=== PATIENT | female | born 1960 | race Caucasian/White ===

== ENCOUNTER 2021-06-24 20:20 | Emergency (ER) | payer OTHER ==
[~2021-06-24] VITALS: Ht 170.2 cm; Wt 72.6 kg
--- NOTE | 2021-06-24 21:17 | NUR ---
Note narcisa in ED - 06/24/21 at 2123 by RONNI PATIENT BIBRA FROM URGENT CARE C/O CHRONIC VOMITTING. PATIENT ALERT AND ORIENTED X3. AMBULATORY WITH NON LABORED BREATHING. PLACED IN BED 12 ON PULSE OX AND MONITOR.
--- NOTE | 2021-06-24 21:23 | NUR ---
PATIENT BIBRA FROM URGENT CARE C/O GERD AND BLOOD IN HER VOMIT. PATIENT ALERT AND ORIENTED X3. AMBULATORY WITH NON LABORED BREATHING. PLACED IN BED 12 ON PULSE OX AND MONITOR.
[2021-06-24] MEDS ORDERED: IOHEXOL-300 100 ML VIAL IV ONE (22:12)
[2021-06-24] MEDS ORDERED: IV NS 0.9% 250 ML IV ONE (22:13)
--- NOTE | 2021-06-24 22:13 | NUR ---
LAB AT BEDSIDE
[2021-06-24 22:48] LABS: BASOPHILS % (AUTO) 0.2 % (0.0-2.0); EOSINOPHILS % (AUTO) 1.7 % (0.0-6.0); HEMATOCRIT 33 % (33-45); HEMOGLOBIN 10.5 g/dL (11.5-14.8); LYMPHOCYTES # (AUTO) 8.3 K/uL (0.8-4.8); LYMPHOCYTES % (AUTO) 52.8 % (20.0-44.0); MEAN CORPUSCULAR HGB CONC 32 g/dl (31.0-36.0); MEAN CORPUSCULAR VOLUME 80 fL (82-100); MONOCYTES # (AUTO) 1.3 K/uL (0.1-1.30); NEUTROPHILS # (AUTO) 5.9 K/uL (1.8-8.9); NEUTROPHILS % (AUTO) 37.3 % (43.0-81.0); PLATELET COUNT (AUTO) 350 K/uL (150-450); WHITE BLOOD COUNT (AUTO) 15.8 K/uL (4.3-11.0)
[2021-06-24 23:01] LABS: BILIRUBIN,URINE NEGATIVE (NEGATIVE); COLOR,URINE YELLOW (YELLOW); LEUKOCYTE ESTERASE ,URINE SMALL (NEGATIVE); NITRITE, URINE NEGATIVE (NEGATIVE); PROTEIN,URINE NEGATIVE (NEGATIVE); UGLUCOSE NEGATIVE (NEGATIVE); UROBILINOGEN,URINE 0.2 EU/dL (0.2)
[2021-06-24 23:06] LABS: RBC,URINE 0-2 /HPF (0-2)
[2021-06-24 23:07] LABS: BACTERIA,URINE Few /HPF (None Seen); CALCIUM OXALATE CRYSTALS,UR Moderate /HPF (None Seen); SQUAMOUS EPITHELIAL CELL,UR Few /HPF (None Seen)
[2021-06-24] MEDS ORDERED: OMEP20CA15 PO (23:08)
[2021-06-24 23:40] LABS: CREATININE 0.9 mg/dL (0.6-1.3); POTASSIUM 3.9 mmol/L (3.5-5.1)
[2021-06-24 23:48] LABS: ALBUMIN 2.7 g/dL (3.4-5.0); BILIRUBIN,TOTAL 0.4 mg/dL (0.2-1.0); TOTAL PROTEIN, SERUM 6.8 g/dL (6.4-8.2)
[2021-06-24] MEDS ORDERED: CEPH500T PO (23:52)
--- NOTE | 2021-06-25 00:05 | NUR ---
Patient discharged to home in stable condition. Written and verbal after care instructions given. Patient verbalizes understanding of instruction.
[2021-06-25 00:06] VITALS: BP 145/80
== END 2021-06-25 00:06 | disposition home or self-care (01) ==
LOC: ER 20:29
DX: K21.9 Gastro-esophageal reflux disease without esophagitis (principal); Z86.19 Personal history of other infectious and parasitic diseases; Z59.00 Homelessness unspecified
CPT/HCPCS: 36415; 74177; 80053; 80307; 81001; 83690; 85025; 87086; 99285; J7050; Q9967